=== PATIENT | male | born 1970 | race African-American/Black ===

== ENCOUNTER 2024-05-06 03:40 | Emergency (ER) | payer OTHER ==
[2024-05-06 03:51] VITALS: BP 130/79; PULSE 97; RESP 20; TEMP 97.9; BMI 34.2
== END 2024-05-06 05:11 | disposition home or self-care (01) ==
LOC: JER 03:40
DX: F10.10 Alcohol abuse, uncomplicated (principal); F14.10 Cocaine abuse, uncomplicated
CPT/HCPCS: 93005; 93010; 99283-25

== ENCOUNTER 2025-06-18 23:33 | Inpatient (IN) | payer OTHER ==
[2025-06-19 00:37] VITALS: RESP 18; BMI 33.0
[2025-06-19] MEDS ORDERED: IBUPROFEN 400 MG TABLET (FP) PO PRN (02:50)
[2025-06-19] MEDS ORDERED: NALOXONE (NARCAN) HCL 4 MG/0.1 ML SPRAY NS PRN (02:50)
[2025-06-19] MEDS ORDERED: NICOTINE POLACRILEX 2 MG GUM BUC PRN (02:50)
[2025-06-19] MEDS ORDERED: MAG HYDROX/AL HYDROX/SIMETH 30 ML UNIT-DOSE CUP PO PRN (02:50)
[2025-06-19] MEDS ORDERED: BENZONATATE 200 MG CAPSULE PO PRN (02:50)
[2025-06-19] MEDS ORDERED: LOPERAMIDE HCL 2 MG CAPSULE PO PRN (02:50)
[2025-06-19] MEDS ORDERED: ACETAMINOPHEN 325 MG TABLET (FP) PO PRN (02:50)
[2025-06-19] MEDS ORDERED: guaiFENesin 600 MG TABLET.ER (FP) PO PRN (02:50)
[2025-06-19] MEDS ORDERED: MAGNESIUM HYDROX 2400MG/30ML ORAL SUSPENSION 30 ML CUP PO PRN (02:50)
[2025-06-19] MEDS ORDERED: BENZOCAINE/MENTHOL (CHLORASEPTIC ) LOZENGE MM PRN (02:50)
[2025-06-19] MEDS ORDERED: POLYETHYLENE GLYCOL (HEALTHYLAX) 3350 17 GM PACKET PO PRN (02:50)
[2025-06-19] MEDS ORDERED: hydrOXYzine PAMOATE 25 MG CAPSULE (FP) PO PRN (02:50)
[2025-06-19] MEDS ORDERED: TUBERCULIN PPD 5 TU/0.1ML VIAL ID ONE (09:46)
[2025-06-19] MEDS: NICOTINE 21 MG/24 HOURS TOPICAL PATCH TD SCH (11:25)
[2025-06-19] MEDS: PRENATAL VITAMINS W/ FOLIC ACID TABLET (FP) PO SCH (11:25)
[2025-06-19 12:04] LABS: MCHC 32.8 g/dl (32.3-36.5); MEAN CELL VOLUME 91.8 fl (79.0-92.2); MEAN PLT VOLUME 10.0 fl (9.4-12.4); RDW 13.0 % (12.2-16.1)
[2025-06-19] MEDS: IBUPROFEN 600 MG TABLET (FP) PO PRN (12:17)
[2025-06-19] MEDS: TUBERCULIN PPD 5 TU/0.1ML SYRINGE (IN PATIENT USE ONLY) ID ONE (12:18)
[2025-06-19 12:26] LABS: GLUCOSE,RANDOM 126 mg/dL (74-106)
[2025-06-19 12:27] LABS: CO2 24 mmol/L (21-32); TOT PROT 7.3 g/dl (6.4-8.2)
[2025-06-19 12:29] LABS: ALK PHOS 68 U/L (40-150)
[2025-06-19 12:32] LABS: CREATININE 0.93 mg/dL (0.55-1.3); SGOT/AST 67 U/L (5-34); SGPT/ALT 44 U/L (0-55)
[2025-06-19 13:04] LABS: URINE APPEARANCE CLEAR; URINE BILIRUBIN NEGATIVE (NEGATIVE); URINE COLOR YELLOW; URINE GLUCOSE (UA) NEGATIVE (NEGATIVE); URINE KETONE 1+ (NEGATIVE)
[2025-06-19 13:05] LABS: URINE LEUK ESTERASE NEGATIVE (NEGATIVE); URINE NITRITE NEGATIVE (NEGATIVE); URINE PROTEIN TRACE (NEGATIVE); URINE UROBILINOGEN 1.0 mg/dL (0.2-1.0)
[2025-06-19] MEDS: THIAMINE 100 MG TABLET PO SCH (21:41)
[2025-06-19] MEDS: MELATONIN 5 MG TABLETS PO SCH (21:42)
[2025-06-20 05:59] VITALS: BP 122/92
[2025-06-21 06:56] VITALS: PULSE 75; TEMP 97.1
== END 2025-06-21 15:58 | disposition left against medical advice (07) | DRG 770 ==
LOC: YASAS 23:33 → Y3W 06-19 02:40
PROVIDERS: ADMIT Allergy & Immunology; ATTEND Psychiatry & Neurology Pain Medicine
PROC: HZ42ZZZ Group Counseling for Substance Abuse Treatment, Cognitive-Behavioral (ICD-10-PCS; principal; 2025-06-19)
DX: F10.20 Alcohol dependence, uncomplicated (principal); F14.20 Cocaine dependence, uncomplicated; F17.210 Nicotine dependence, cigarettes, uncomplicated; F31.9 Bipolar disorder, unspecified; F41.9 Anxiety disorder, unspecified; I10 Essential (primary) hypertension
CPT/HCPCS: 36415; 80053; 80305; 80307; 81003; 85027; 86780; 87811; 93005; 93010